=== PATIENT | male | born 1935 | race Caucasian/White ===

== ENCOUNTER 2017-03-13 00:23 | Emergency (ER) | payer OTHER ==
[~2017-03-13 00:23] MED LIST: ASPIR LOW81 MG PO; AUG500 PO; CIPRO500 MG PO; CLINDAMYCIN HC300 MG PO; CORTEF10 MG PO; COUMADIN10 MG PO; COUMADIN2.5 MG PO; COUMADIN5 MG PO; DELTA D3400 IU PO; DOCUSATE NA250 MG PO; DOXYCYCLINE100 M4 PO; FERROUS SULFAT325 M2 PO; FOLIC ACID1 MG PO; FUROSEMIDE20 MG PO; GLIPIZIDE10 M2 PO; GLYBURIDE5 MG PO; HYDROCORTISONE PO; HYDROCORTISONE10 M1; HYDROCORTISONE10 M1 PO; LAC PO; LEVAQUIN750 MG PO; LEVOTHYROXIN0.025 M2 PO; LEVOTHYROXINE0.05 M2 PO; LIPI10 PO; LISINOPRIL40 MG PO; MAC100 PO; MAGNESIUM OXID400 MG PO; METFORMIN HCL1000 MG PO; METFORMIN HCL500 MG PO; METHENAMINE MAND1 GM PO; METOCLOPRAMIDE5 M1 PO; METOPROLOL TART25 M1 PO; METOPROLOL TART50 MG PO; MINOCYCLINE HYD50 MG PO; MUCINEX600 MG PO; NIFEDIPINE90 MG PO; OMEPRAZOLE20 M2 PO; PANTOPRAZOLE SO40 M1 PO; POTASSIUM PO; PROCARDIA XL90 MG PO; PROVENTIL0.09 MG/A1 INH; PROZ10 PO; SENNA LAX8.6 MG PO; SIMETHICONE80 MG PO; VITC PO; WARFARIN PO; ZESTRIL20 MG PO; zosyn IV
[2017-03-13 01:16] LABS: BASOPHIL % 0.4 % (0-2); PLATELET COUNT 348 x10^3mcL (130-400)
[2017-03-13 01:17] LABS: RED CELL DISTRIBUTION WIDTH 19.1 % (11.5-14.5)
[2017-03-13 01:23] LABS: CALCIUM 8.5 mg/dL (8.5-10.1); CARBON DIOXIDE 23.8 mmol/L (21-32); CHLORIDE SERUM 100 mmol/L (98-107); CREATININE SERUM 1.6 mg/dL (0.7-1.3); GLUCOSE SERUM 280 mg/dL (74-106); POTASSIUM SERUM 4.1 mmol/L (3.5-5.1); SODIUM SERUM 136 mmol/L (136-145)
[2017-03-13 01:27] LABS: ALKALINE PHOSPHATASE 124 U/L (46-116); ALT/SGPT 31 U/L (16-63); AST/SGOT 12 U/L (15-37); BILIRUBIN TOTAL 0.22 mg/dL (0.20-1.00); TOTAL PROTEIN, SERUM 6.9 g/dL (6.4-8.2)
[2017-03-13 01:28] LABS: ALBUMIN 3.3 g/dL (3.4-5.0)
[2017-03-13 01:50] LABS: UA SPECIFIC GRAVITY 1.015 (1.005-1.035); microscopic required? YES; urine erythrocyte 2+ (NEGATIVE)
[2017-03-13 06:48] VITALS: BP 108/58
== END 2017-03-13 06:49 | disposition home or self-care (01) ==
LOC: ED 00:23
PROVIDERS: Emergency Medicine
DX: N39.0 Urinary tract infection, site not specified (principal); I10 Essential (primary) hypertension; E11.9 Type 2 diabetes mellitus without complications; J44.9 Chronic obstructive pulmonary disease, unspecified; Z96.0 Presence of urogenital implants; Z79.01 Long term (current) use of anticoagulants; Z79.899 Other long term (current) drug therapy; Z79.82 Long term (current) use of aspirin; Z86.718 Personal history of other venous thrombosis and embolism; Z79.84 Long term (current) use of oral hypoglycemic drugs
CPT/HCPCS: 36415